=== PATIENT | female | born 2000 | race Hispanic/Latino ===

== ENCOUNTER → 2021-09-27 09:01 | Outpatient (CLI) | payer OTHER, SELFPAY ==
[2021-09-27 09:42] LABS: Appearance Urine UA CLEAR; Bilirubin Urine UA NEGATIVE (NEGATIVE); Color Urine UA YELLOW; Glucose Urine UA NEGATIVE (Negative); Ketones Urine UA NEGATIVE (NEGATIVE); Leukocyte Esterase Urine UA NEGATIVE (NEGATIVE); Nitrite Urine UA NEGATIVE (Negative); Occult Blood Urine UA NEGATIVE (Negative); Protein Urine UA NEGATIVE (Negative); Specific Gravity Urine UA <=1.005 (1.000-1.035); Urobilinogen Urine UA 0.2 E.U./dL (0.2)
[2021-09-27 09:43] LABS: pH Urine UA 6.5 (4.5-8.0)
[2021-09-27 09:44] LABS: Add Manual Diff / Slide Review NO; Basophils Absolute Auto 0 /uL (0-100); Basophils Percent Auto 0.5 % (0-2); Eosinophils Absolute Auto 100 /uL (0-450); Eosinophils Percent Auto 1.6 % (2-4); Hematocrit 42.4 % (36-46); Hemoglobin 14.5 g/dL (12.0-16.0); Lymphocytes Absolute Auto 1600 /uL (1100-4500); Lymphocytes Percent Auto 18.6 % (25-40); Mean Corpuscular HGB Conc 34.2 % (30-36); Mean Corpuscular Hemoglobin 30.2 PG (26-34); Mean Corpuscular Volume 88.1 fL (80-100); Monocytes Absolute Auto 400 /uL (0-900); Monocytes Percent Auto 4.3 % (3-14); Neutrophils Absolute Auto 6600 /uL (1500-7000); Platelet Count 203 X10^3/uL (150-400); Red Blood Cell Count 4.81 X10^6/uL (4.0-5.2); Red Cell Distribution Width 12.7 % (11.6-14.8); White Blood Cell Count 8.8 X10^3/uL (4.5-11.0)
[2021-09-27 14:30] LABS: Urine Chlamydia NOT DETECTED; Urine N gonorrhoeae NOT DETECTED
[2021-09-28 05:33] LABS: RPR Screen Non Reactive (Non Reactive)
[2021-09-28 11:36] LABS: Varicella IgG Antibody 192 index (Immune >165)
[2021-09-28 16:54] LABS: Hepatitis B Surface Antigen NEGATIVE s/c (NEGATIVE); Rubella Antibody IgG 28.4 IU/mL (>15)
[2021-09-28 16:56] LABS: HIV 1 & 2 Ab/Ag 4th Gen Combo NEGATIVE (NEGATIVE); Hep C Virus Ab w/Reflex Quant NEGATIVE s/c (NEGATIVE)
== END ==
PROVIDERS: PCP Student in an Organized Health Care Education/Training Program; Referring Provider Specialist; Visit Provider Specialist
DX: Z34.01 Encounter for supervision of normal first pregnancy, first trimester (principal); Z3A.11 11 weeks gestation of pregnancy
CPT/HCPCS: 36415; 80055; 81003; 86787; 86803; 86850; 86900; 86901; 87389; 87491; 87591

== ENCOUNTER → 2021-10-30 08:18 | Outpatient (CLI) | payer OTHER, SELFPAY ==
[2021-11-01 20:45] LABS: AFP, Serum 29.5 ng/mL (.); Estriol, Free 0.94 ng/mL (.); Inhibin A, Dimeric 262.84 pg/mL (.); Inhibin A, MoM 1.65 (.); Maternal Ethnicity Other (.); Maternal Weight 142 lbs (.); Number of Fetuses No (.); OSBR Risk 1 IN 10000 (.); Results Report (.); Test Results *Screen Negative* (.); hCG, MoM 2.61 (.); hCG, Serum 106156 mIU/mL (.)
== END ==
PROVIDERS: PCP Student in an Organized Health Care Education/Training Program; Referring Provider Specialist; Visit Provider Specialist
DX: Z34.02 Encounter for supervision of normal first pregnancy, second trimester (principal); Z3A.16 16 weeks gestation of pregnancy
CPT/HCPCS: 36415; 82105; 82677; 84702; 86336

== ENCOUNTER → 2021-11-29 12:16 | Outpatient (CLI) | payer OTHER, SELFPAY ==
--- NOTE | 2021-11-29 12:17 | DI.US.S_ITS ---
PROCEDURE: US OB >= 14 WEEKS FETUS INDICATIONS: ANATOMY OUTSIDE/PRIOR DATING DATA: Last menstrual period (LMP): 07/08/2021. LMP-based estimated date of delivery (ALBINA): 04/14/2022. First dating scan (date and location): 09/27/2021. Estimated date of delivery (ALBINA) from first dating scan: 04/15/2022. The calculations are made using the ultrasound ALBINA of 04/15/2022. TECHNIQUE: Real-time scanning was performed of the fetus, with image documentation and biometric measurements. Endovaginal scanning: Not performed COMPARISON: None. FINDINGS: General: A single living intrauterine gestation is present. Presentation: Vertex. Placenta: Placental position is anterior, low lying , without previa. Inferior placenta edge is 1.7 cm from the cervical os. Amniotic fluid index: 13.2 cm, normal range is 5-24 cm. Single deepest vertical pocket is 4.5 cm. heart rate: 145 beats per minute. Maternal cervical canal: 3.4 cm long. Normal lower limit is 2.5 cm. biometrics: Biparietal diameter: 4.7 cm, 20 weeks 1 day Head circumference: 17.3 cm, 19 weeks 6 days Abdominal circumference: 14.2 cm, 19 weeks 4 days Femur length: 3.2 cm, 19 weeks 6 days Clinically estimated gestational age: 20 weeks 3 days Composite gestational age from present scan: 19 weeks 6 days Estimated weight and percentile: 309 g, 14th percentile Anatomic survey: Neuro: Ventricles are non-dilated at less than 10 mm. Cisterna magna is normal at 3-11 mm. Cerebellum is normal in size and morphology. Nuchal skin fold: Normal at less than 6 mm between 14-21 weeks gestational age. Face: Nose and lips, facial profile are normal. Spine: No evidence for spina bifida. Heart: 4-chambered heart is present, with normal ventricular outflow tracts. Diaphragm: Diaphragm is intact. Stomach: Left-sided stomach is present. Kidneys: No hydronephrosis. Normal is less than 5 mm in 2nd trimester, less than 7 mm in 3rd trimester. Cord: 3-vessel cord has orthotopic insertion. Bladder: Normal in size. Extremities: All 4 extremities identified. IMPRESSION: 1. Single living 2nd trimester intrauterine with no sonographic evidence of complications. 2. Today's ultrasound age is 4 days less than clinical age based on initial ultrasound. 3. Low lying placenta, 1.7 cm from the cervical os. 4. Otherwise normal anatomy study. Comment: Consider follow-up ultrasound to document the continued presence or absence of a low lying placenta. We strive to produce accurate, complete, and clear reports of imaging services. To assist us in improving patient care, this report was composed using standard report templates and voice recognition software. Therefore, it may contain abnormal punctuation, insertions and/or omissions. Occasional wrong-word or sound-alike substitutions may occur. Though we review the report and make efforts to correct it, we do recommend that the report be read carefully in proper context to recognize any text inaccuracies. Dictated by: Alexander Garcia M.D. on 11/29/2021 at 16:24 Approved by: Alexander Garcia M.D. on 11/29/2021 at 16:28
== END ==
PROVIDERS: PCP Student in an Organized Health Care Education/Training Program; Referring Provider Specialist; Visit Provider Specialist
DX: Z34.02 Encounter for supervision of normal first pregnancy, second trimester (principal); Z3A.19 19 weeks gestation of pregnancy
CPT/HCPCS: 76811